=== PATIENT | male | born 1935 | race Caucasian/White ===

== ENCOUNTER 2019-07-01 09:04 | Observation (INO) | payer OTHER ==
[~2019-07-01] VITALS: Ht 172.7 cm; Wt 75.8 kg
[2019-07-01] MEDS ORDERED: SODIUM CHLORIDE 0.9% 500ML 500 ML IV ONE (09:45)
[2019-07-01] MEDS ORDERED: ASPIRIN 81 MG CHEW TAB PO ONE (10:30)
[2019-07-01] MEDS ORDERED: DILTIAZEM HCL 5 MG/ML 5 ML VIAL IV ONE (10:30)
[2019-07-01 10:31] LABS: BASOPHILS % 0.6 % (0.0-1.0); EOSINOPHILS # (AUTO) 0.1 (0.0-0.4); EOSINOPHILS % 0.9 % (0.0-6.0); HEMATOCRIT 44.8 % (38.2-49.6); HEMOGLOBIN 14.8 g/dL (14.0-18.0); LYMPHOCYTES # (AUTO) 1.8 (1.0-3.2); LYMPHOCYTES % 27.6 % (18.0-39.1); MEAN CORPUSCULAR HEMOGLOBIN 27.4 pg (28-32); MONOCYTES # (AUTO) 0.5 (0.2-0.8); MONOCYTES % 7.3 % (4.4-11.3); NEUTROPHILS # (AUTO) 4.2 (2.1-6.9); NEUTROPHILS % 63.2 % (38.7-80.0); PLATELET COUNT 251 x10e3/uL (140-360); RED CELL DISTRIBUTION WIDTH 14.5 % (11.7-14.4)
[2019-07-01 10:44] LABS: INR 0.99; PROTHROMBIN TIME 13.3 seconds (11.9-14.5)
[2019-07-01 10:45] LABS: PARTIAL THROMBOPLASTIN TIME 23.5 seconds (23.8-35.5)
[2019-07-01] MEDS ORDERED: DILTIAZEM HCL 5 MG/ML 5 ML VIAL IV STA (10:50)
[2019-07-01 10:57] LABS: ALBUMIN 3.9 g/dL (3.5-5.0); ALBUMIN/GLOBULIN RATIO 1.1 (0.8-2.0); CALCIUM 10.1 mg/dL (8.4-10.2); CREATININE, SERUM 1.31 mg/dL (0.72-1.25); MAGNESIUM 1.4 MG/DL (1.3-2.1)
[2019-07-01] MEDS ORDERED: ENOXAPARIN INJ 80 MG/0.8 ML SYR SC ONE (11:15)
[2019-07-01] MEDS ORDERED: DILTIAZEM HCL 60 MG TAB PO ONE (11:15)
[2019-07-01] MEDS ORDERED: ONDANSETRON HCL INJ 2MG/ML 2ML 2 MG/ML VIAL IV PRN (11:30)
[2019-07-01] MEDS ORDERED: DEXTROSE 50% SYRINGE 50 ML IV PRN (11:30)
[2019-07-01 11:35] LABS: THYROID STIMULATING HORMONE 1.179 uIU/mL (0.350-4.940)
[2019-07-01] MEDS: AZITHROMYCIN 500MG/NS 250 ML 250 ML IV SCH (11:38)
--- NOTE | 2019-07-01 11:40 | Diagnostic Imaging Report ---
Chest, 1 view, 07/01/2019. History: Cough, shortness of breath. Comparison: None available. Findings: The cardiomediastinal silhouette and pulmonary vasculature are within normal limits for a portable exam. There is no focal consolidation or pleural effusion. Median sternotomy wires and CABG clips are noted. There are no acute osseous or soft tissue abnormalities. Impression: No acute cardiopulmonary abnormality. Signed by: Eddie Francisco on 07/01/2019 11:37 AM
[2019-07-01] MEDS: INSULIN LISPRO 100 UNIT/1 ML 3ML VIAL SQ SCH ×3 (12:10→21:25)
--- OUTSIDE RECORDS SUMMARY | 2019-07-01 12:37 | XMS REPORT ---
[facility] Address Unknown Phone Unavailable Care Team Providers Care Skein Washer Name Role Phone Bailee ROWLEY Unavailable Unavailable Problems This patient has no known problems. Allergies, Adverse Reactions, Alerts This patient has no known allergies or adverse reactions. Medications This patient has no known medications. Results Test Description Test Time Test Comments Text Results Atomic Results Result Comments CHEST SINGLE (PORTABLE) 2019-07-01 11:37:00 [place] [id number] Patient Name: ASHLIE ALBERTS MR #: [id number] : 1935 Age/Sex: 83/M Req #: [id number] Adm Physician: Ordered by: ADRIAN ROWLEY MD Report #: [id number] Location: ER Room/Bed: Procedure: [id number] DX/CHEST SINGLE (PORTABLE) Exam Date: 07/01/19 Exam Time: 1055 REPORT STATUS: Signed Chest, 1 view, 07/01/2019. History: Cough, shortness of breath. Comparison: None available. Findings: The cardiomediastinal silhouette and pulmonary vasculature are within normal limits for a portable exam. There is no focal consolidation or pleural effusion. Median sternotomy wires and CABG clips are noted. There are no acute osseous or soft tissue abnormalities. Impression: No acute cardiopulmonary abnormality. Signed by: Brionna Francisco on 07/01/2019 11:37 AM Dictated By: BRIONNA FRANCISCO MD 113 Transcribed By: VALENTÍN on 07/01/19 113 COPY TO: ADRIAN ROWLEY MD
[2019-07-01] MEDS: CEFTRIAXONE SOD 1 GM/NS 50 ML 50 ML IV SCH (13:46)
--- NOTE | 2019-07-01 14:04 | Consultation ---
DATE OF CONSULTATION: 07/01/2019 Cardiology Consultation REASON FOR CONSULTATION: Atrial flutter. HISTORY OF PRESENT ILLNESS: An 83-year-old man with a history of type 2 diabetes mellitus, hypertension, dyslipidemia, coronary artery disease, status post three-vessel aortocoronary bypass in 2014, presents with complaints of new onset palpitations, lightheadedness, chest discomfort, and shortness of breath. He was found to have atrial flutter with rapid ventricular response on initial visit and was administered diltiazem with improvement and resolution of symptoms. He also received azithromycin and ceftriaxone as part of his initial ER medications. White count is 6.6, hemoglobin 14.8, and platelets 251. Creatinine 1.3. TSH 1.1. Initial troponin negative. BNP mildly elevated at 101. Blood cultures ordered and pending. Chest x-ray is remarkable for no acute cardiopulmonary abnormality. Median sternotomy wires and clips noted. He has currently no complaints. REVIEW OF SYSTEMS: A 12-system review negative except for as noted above. PAST MEDICAL HISTORY: As per HPI. SOCIAL HISTORY: Denies smoking, alcohol, or drugs. FAMILY HISTORY: Noncontributory. Accompanied by . Good social support. PHYSICAL EXAMINATION: VITAL SIGNS: Temperature 97 degrees, heart rate 87, atrial flutter with controlled ventricular response on telemetry, respiratory rate 13, blood pressure 118/69, and O2 saturation 100%. GENERAL: No acute distress. Alert. NECK: No JVD. CHEST: Clear to auscultation. CARDIOVASCULAR: Irregularly irregular rate and rhythm. Normal S1 and S2. No S3 or S4. ABDOMEN: Soft. Bowel sounds positive. EXTREMITIES: No edema. Warm distal extremities. Sternotomy scar. CARDIOVASCULAR MEDICATIONS: Reviewed. STUDIES: Reviewed. Remarkable studies as per HPI. ASSESSMENT AND PLAN: 1. An 83-year-old man presents with atrial flutter with rapid ventricular response with complaints of chest pain, shortness of breath, and lightheadedness, now improved. 2. Type 2 diabetes mellitus. 3. Hypertension. 4. Dyslipidemia. 5. Coronary artery disease, status post aortocoronary bypass in 2014. RECOMMEND: 1. Obtain echocardiogram. 2. Maintain on telemetry. 3. Initiate beta-april therapy. 4. Discussed at length indications, alternatives, risks, and benefits for anticoagulation including alternative options, vitamin K antagonist and direct oral anticoagulant. The patient voices understanding and agrees to proceed with anticoagulation. Gabby initiated. 5. Continue rest of cardiovascular medications. MD NJ Gerber/MARISA /[id number]
[2019-07-01 15:37] VITALS: BP 129/64
[2019-07-01 16:14] LABS: CREATINE KINASE MB 0.8 ng/mL (0-5.0)
[2019-07-01] MEDS: APIXABAN 5 MG TABLET PO SCH (16:59)
[2019-07-01] MEDS: METOPROLOL SUCCINATE 25 MG TAB XL PO SCH (17:21)
[2019-07-01 17:22] VITALS: BP 129/64
[2019-07-01 17:29] VITALS: BP 129/64
[2019-07-01] MEDS ORDERED: METOPROLOL TARTRATE INJ 1 MG/ML VIAL IV PRN (18:00)
[2019-07-01 20:00] VITALS: BP 109/63
[2019-07-01] MEDS ORDERED: ATORVASTATIN 40 MG TAB PO SCH (21:00)
[2019-07-01 21:21] VITALS: BP 109/63
[2019-07-02] VITALS: BP 133/64
--- NOTE | 2019-07-02 00:07 | History and Physical ---
PRIMARY CARE PHYSICIAN: Dr. Velasquez at [facility]. CHIEF COMPLAINT: Chest pain, shortness of breath, and dizziness. HISTORY OF PRESENT ILLNESS: This is an 83-year-old male with past medical history of diabetes, high blood pressure, high cholesterol, and CAD, status post CAB x3 in 2014, presented to the ER with complaints of chest pain, shortness of breath, dizziness and nausea that started early this morning. 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 Funes and was instructed to go to the nearest ER right away. Upon arrival to the ER, he was noted to have new onset of atrial flutter, atrial fibrillation. Troponins were negative. He was given Cardizem IV and Lovenox and consulted Cardiology for further evaluation and management. PAST MEDICAL HISTORY: 1. Diabetes type 2. 2. Hypertension. 3. High cholesterol. 4. CAD. PAST SURGICAL HISTORY: Triple CAB in 2014. FAMILY MEDICAL HISTORY: Mother had diabetes and heart disease. Father of a car accident. He has brothers and sisters, who also had heart disease. SOCIAL HISTORY: He denies any tobacco or illicit drug use, but reports occasional alcohol use. ALLERGIES: UNKNOWN. REVIEW OF SYSTEMS: GENERAL: Dizziness. HEENT: No head trauma. LUNGS: Shortness of breath, but no cough. CARDIOVASCULAR: Chest pain, pressure. GI: Nausea, but no vomiting. NEURO: Dizziness. MUSCULOSKELETAL: No edema. SKIN: No rash. PHYSICAL EXAMINATION: VITAL SIGNS: Temperature 96.9, pulse is 72, respiration 18, blood pressure 129/64, pulse ox 97% on room air. GENERAL: No acute distress. HEENT: Normocephalic, atraumatic. NECK: Supple. LUNGS: Clear to auscultation. CARDIOVASCULAR: Regular rate and rhythm. GI: Soft and nontender. NEUROLOGIC: Alert, awake, and oriented x3. MUSCULOSKELETAL: Moves all extremities. No edema. SKIN: Dry and intact. PSYCH: Calm. LABORATORY DATA: WBC 6.67, hemoglobin 14.8, hematocrit 44.8, and platelet 251. Sodium 134, potassium 5.0, CO2 21, BUN 18, creatinine 1.31, estimated GFR 52, blood glucose 214, magnesium 1.4, AST 15, ALT 13. CK 29, troponin I 0.006, 0.002. BNP 101. Protein 7.4. TSH 1.17. PT 13.3, INR 0.99, APTT 23.5. IMAGING: Chest x-ray, no acute cardiopulmonary abnormality. Blood culture is pending. IMPRESSION: 1. Chest pain associated with shortness of breath. Rule out acute coronary syndrome. Troponin x2 negative, Cardiology consulted. Echo pending. 2. New onset of atrial fibrillation/flutter. Was given Cardizem in the ER, now sinus rhythm. Continue on metoprolol, statin, and aspirin. 3. Diabetes type 2. We will continue sliding scale insulin coverage. 4. Hypertension, stable on metoprolol 25 b.i.d. 5. High cholesterol, on statin. 6. Coronary artery disease, status post CAB x3. Continue , aspirin and beta-blockers. 7. Upper respiratory infection. Chest x-ray is negative. We will continue with Rocephin and azithromycin as started in the ER. We will continue to monitor. We will also check the flu. 8. Acute kidney injury. Creatinine 1.31. We will continue with labs in a.m. 9. Deep vein thrombosis prophylaxis, on Eliquis. PLAN: To continue with cardiac monitoring, beta blockers for rate control and Eliquis started for cerebrovascular accident prophylaxis. Further recommendation per Cardiology. Dictated by KIRSTIE Black Dianne Yepez MD MY/MODL /[id number]
[2019-07-02 04:00] VITALS: BP 106/59
[2019-07-02 06:00] LABS: BASOPHILS % 0.6 % (0.0-1.0); EOSINOPHILS # (AUTO) 0.1 (0.0-0.4); EOSINOPHILS % 1.3 % (0.0-6.0); HEMATOCRIT 39.2 % (38.2-49.6); HEMOGLOBIN 12.9 g/dL (14.0-18.0); LYMPHOCYTES # (AUTO) 2.3 (1.0-3.2); LYMPHOCYTES % 42.1 % (18.0-39.1); MEAN CORPUSCULAR HEMOGLOBIN 27.7 pg (28-32); MEAN CORPUSCULAR HGB CONC 32.9 g/dL (31-35); MEAN CORPUSCULAR VOLUME 84.3 fL (81-99); MONOCYTES # (AUTO) 0.5 (0.2-0.8); MONOCYTES % 10.1 % (4.4-11.3); NEUTROPHILS # (AUTO) 2.4 (2.1-6.9); NEUTROPHILS % 45.5 % (38.7-80.0); PLATELET COUNT 228 x10e3/uL (140-360); RED BLOOD COUNT 4.65 x10e6/uL (4.3-5.7); RED CELL DISTRIBUTION WIDTH 14.6 % (11.7-14.4)
[2019-07-02 06:19] LABS: CREATINE KINASE 25 IU/L (30-200)
[2019-07-02 06:43] LABS: ALANINE AMINOTRANSFERASE 9 IU/L (0-55); ALBUMIN 3.2 g/dL (3.5-5.0); ALBUMIN/GLOBULIN RATIO 1.2 (0.8-2.0); ALKALINE PHOSPHATASE 49 IU/L (40-150); ANION GAP 14.4 mmol/L (8-16); BLOOD UREA NITROGEN 15 mg/dL (7-26); BUN/CREATININE RATIO 15 (6-25); CALCIUM 9.1 mg/dL (8.4-10.2); CARBON DIOXIDE 22 mmol/L (22-29); CHLORIDE 106 mmol/L (98-107); CHOL/HDL RATIO 3.6 (3.9-4.7); CHOLESTEROL 128 MD/DL (0-199); CREATININE, SERUM 0.99 mg/dL (0.72-1.25); EST GLOMERULAR FILTRATION RATE > 60 ML/MIN (60-); GLUCOSE 120 mg/dL (74-118); HDL CHOLESTEROL 36 MG/DL (40-60); LDL CHOLESTEROL 74 MG/DL (60-130); POTASSIUM 4.4 mmol/L (3.5-5.1); SODIUM 138 mmol/L (136-145); TRIGLYCERIDES 92 MG/DL (0-149)
[2019-07-02 07:49] VITALS: BP 112/56
[2019-07-02] MEDS: APIXABAN 5 MG TABLET PO SCH (08:18)
[2019-07-02] MEDS: METOPROLOL SUCCINATE 25 MG TAB XL PO SCH (08:19)
[2019-07-02 08:44] VITALS: BP 112/56
[2019-07-02] MEDS ORDERED: ASPIRIN 81 MG ENTERIC COATED PO SCH (09:00)
[2019-07-02] MEDS ORDERED: ASPIRIN 81 MG CHEW TAB PO SCH (09:00)
[2019-07-02] MEDS: INSULIN LISPRO 100 UNIT/1 ML 3ML VIAL SQ SCH ×2 (11:03→15:23)
[2019-07-02 12:07] VITALS: BP 103/58
[2019-07-02] MEDS: AZITHROMYCIN 500MG/NS 250 ML 250 ML IV SCH (12:17)
[2019-07-02] MEDS: CEFTRIAXONE SOD 1 GM/NS 50 ML 50 ML IV SCH (12:30)
[2019-07-02] MEDS ORDERED: ASPIRIN EC81 MG PO (14:07)
[2019-07-02] MEDS ORDERED: ELIQUIS5 MG PO (14:07)
[2019-07-02] MEDS ORDERED: TOPROL XL25 MG PO (14:07)
[2019-07-02] MEDS ORDERED: METFORMIN HCL500 MG PO (14:36)
[2019-07-02] MEDS ORDERED: LIPITOR20 MG PO (14:37)
--- NOTE | 2019-07-02 15:44 | Progress Note ---
DATE: 07/02/2019 Cardiology Progress Note SUBJECTIVE: No complaints. OBJECTIVE: VITAL SIGNS: Temperature 97.8, heart rate 73, blood pressure 103/58, respiratory rate 18, O2 saturation 98%. GENERAL: No acute distress, alert. NECK: No JVD. CHEST: Clear to auscultation. CARDIOVASCULAR: Irregular rate and rhythm. Normal S1 and S2. Systolic ejection murmur 1/6. ABDOMEN: Soft. Bowel sounds positive. EXTREMITIES: Trace edema, warm distal extremities. CARDIOVASCULAR MEDICATIONS: Reviewed. Eliquis 5 mg every 12 hours, aspirin 81 mg daily, atorvastatin 40 mg at bedtime, metoprolol succinate 25 mg daily. LABORATORY DATA: Studies reviewed. Creatinine 0.9, hemoglobin 12.9 platelets 228. AST 13, ALT 9. ASSESSMENT: 1. Paroxysmal atrial flutter. 2. Acute on chronic systolic heart failure. 3. Coronary artery disease with history of bypass. 4. Diabetes mellitus and hypertension. RECOMMEND: 1. For nonvalvular atrial flutter anticoagulation for thromboembolic risk prevention in the setting of elevated CHADS vasc score is advised and discussed with patient, who agrees with Eliquis. 2. Rate control strategy with metoprolol advised. Continue statin and aspirin for history of CAD. 3. Continues diabetes management. 4. Close outpatient followup advised with primary care and Cardiology. 5. As outpatient and as blood pressure allows, consider adding ARB/ARNI. At this point, given low normal blood pressure reads and recent adjustment of metoprolol dosing, it is felt blood pressure limits use of HELDER inhibitor, ARB or ARNI. Jp Combs MD AFShanel/MODL /[id number]
[2019-07-02 16:14] VITALS: BP 111/66
--- NOTE | 2019-07-03 03:21 | Discharge Summary ---
PRIMARY CARE PHYSICIAN: Dr. Velasquez at [facility]. FINAL DIAGNOSES: 1. Chest pain associated with shortness of breath. 2. New onset of atrial fibrillation and flutter. 3. Diabetes type 2. 4. Hypertension. 5. Cholesterol. 6. Coronary artery disease status post coronary artery bypass grafting. 7. Acute kidney injury. CONSULTANTS: Dr. Castillo with Cardiology. PROCEDURES: None. HISTORY: Per HPI. HOSPITAL COURSE: This is an 83-year-old male, who presented to the ER with complaints of chest pain, shortness of breath, and was noted to have atrial fibrillation. Troponins were negative, he was given Cardizem IV and started on Lovenox. Cardiology has evaluated the patient. Echocardiogram was negative. He was started on metoprolol and anticoagulation with Eliquis for CVA prophylaxis. He has been monitored on telemetry overnight with no further arrhythmia. He remains normal sinus rhythm, no chest pain, nausea, vomiting, shortness of breath, fever, or chills. We will discharge home today to follow up with PCP and Dr. 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 PHYSICAL EXAMINATION: VITAL SIGNS: Temperature 96.9, pulse is 72, respirations 18, blood pressure 129/64, and pulse ox 97% on room air. GENERAL: No acute distress. HEENT: Normocephalic and atraumatic. NECK: Supple. LUNGS: Clear to auscultation. CARDIOVASCULAR: Regular rate and rhythm. GASTROINTESTINAL: Soft and nontender. NEUROLOGIC: Alert, awake, and oriented x3. MUSCULOSKELETAL: Moves all extremities. SKIN: Dry. PSYCH: Calm. CONDITION AT DISCHARGE: Improved and stable. DISCHARGE MEDICATIONS: Please see medication reconciliation list. FOLLOWUP: Follow up with PCP and Dr. Funes, his returned goods sorter next week per appointment. TIME SPENT: Total discharge time is 32 minutes. Dictated by KIRSTIE Black Dianne Yepez MD MY/MODL /[id number] cc: Dr. Velasquez At [facility]
== END 2019-07-02 16:58 | disposition home or self-care (01) ==
LOC: ER 09:04 → ERHOLD 11:19 → INTOOBSV 11:19 → MED/SURG2 14:58
PROVIDERS: ADMIT Internal Medicine; ATTEND Internal Medicine
DX: I48.0 Paroxysmal atrial fibrillation (principal); I48.92 Unspecified atrial flutter; E11.9 Type 2 diabetes mellitus without complications; E78.5 Hyperlipidemia, unspecified; I25.10 Atherosclerotic heart disease of native coronary artery without angina pectoris; Z95.1 Presence of aortocoronary bypass graft; J06.9 Acute upper respiratory infection, unspecified; N17.9 Acute kidney failure, unspecified; I11.0 Hypertensive heart disease with heart failure; I50.23 Acute on chronic systolic (congestive) heart failure; Z79.82 Long term (current) use of aspirin; Z79.84 Long term (current) use of oral hypoglycemic drugs
CPT/HCPCS: 36415 ×2; 71045; 80053 ×2; 80061; 82550 ×2; 82553 ×2; 82948 ×2; 83735; 83880; 84443; 84484 ×2; 85025 ×2; 85610; 85730; 87040; 87400; 93005; 93306; 99284; G0378 ×2; J0456 ×2; J0696 ×2; J1650; J7040

== ENCOUNTER 2021-04-30 11:03 | Emergency (ER) | payer MEDICARE, OTHER ==
[~2021-04-30] VITALS: Ht 170.2 cm; Wt 77.6 kg
[~2021-04-30 11:03] MED LIST: ASPIRIN EC81 MG PO; ELIQUIS5 MG PO; LIPITOR20 MG PO; METFORMIN HCL500 MG PO; TOPROL XL25 MG PO
[2021-04-30 11:44] LABS: BASOPHILS % 0.3 % (0.0-1.0); EOSINOPHILS % 0.2 % (0.0-6.0); HEMOGLOBIN 12.1 g/dL (14.0-18.0); LYMPHOCYTES # (AUTO) 1.4 (1.0-3.2); LYMPHOCYTES % 11.2 % (18.0-39.1); MEAN CORPUSCULAR HEMOGLOBIN 24.3 pg (28-32); MEAN CORPUSCULAR VOLUME 78.5 fL (81-99); MONOCYTES # (AUTO) 0.9 (0.2-0.8); MONOCYTES % 7.2 % (4.4-11.3); NEUTROPHILS # (AUTO) 9.8 (2.1-6.9); NEUTROPHILS % 80.5 % (38.7-80.0); PLATELET COUNT 227 x10e3/uL (140-360); RED BLOOD COUNT 4.97 x10e6/uL (4.3-5.7)
[2021-04-30 11:59] LABS: ALBUMIN/GLOBULIN RATIO 1.2 (0.8-2.0); ANION GAP 14.6 mmol/L (8-16); CALCIUM 9.1 mg/dL (8.4-10.2); CREATININE, SERUM 1.28 mg/dL (0.72-1.25); POTASSIUM 4.6 mmol/L (3.5-5.1)
[2021-04-30 12:58] VITALS: BP 158/76
== END 2021-04-30 13:00 | disposition home or self-care (01) ==
LOC: EDBD 11:21 → ER 11:21
DX: R50.9 Fever, unspecified (principal); R09.89 Other specified symptoms and signs involving the circulatory and respiratory systems; M25.511 Pain in right shoulder; E11.65 Type 2 diabetes mellitus with hyperglycemia; Z20.822 Contact with and (suspected) exposure to COVID-19; I25.10 Atherosclerotic heart disease of native coronary artery without angina pectoris; Z95.1 Presence of aortocoronary bypass graft
CPT/HCPCS: 36415; 71046; 80053; 83880; 84484; 85025; 93005; 99284; U0002